=== PATIENT | male | born 2000 | race Caucasian/White ===

== ENCOUNTER 2020-05-08 21:21 | Emergency (ER) | payer OTHER ==
[~2020-05-08] VITALS: Ht 180.3 cm; Wt 77.3 kg
[2020-05-08 21:30] VITALS: BP 128/84; TEMP 98.3
[2020-05-08 23:10] VITALS: PULSE 87
== END 2020-05-08 23:12 | disposition home or self-care (01) ==
LOC: COL.ER 21:21
DX: S92.531A Displaced fracture of distal phalanx of right lesser toe(s), initial encounter for closed fracture (principal); W20.8XXA Other cause of strike by thrown, projected or falling object, initial encounter